=== PATIENT | female | born 1960 | race Caucasian/White ===

== ENCOUNTER → 2018-06-13 | Outpatient (CLI) | payer BC ==
--- NOTE | 2018-06-13 14:41 | PCVCIMAG ---
APPROVED REPORT Study performed: 06/13/2018 13:05:03 Exam: Stress Echocardiogram Indication: Dyspnea, FATIGUE,HTN,CHOL Patient Location: Echo lab Stress Nurse: Orquidea Mcelroy RN Room #: 2 Status: routine Ht: 5 ft 2 in HR: 69 bpm BP: 110/64 mmHg Rhythm: NSR Medical History Medical History: HTN, Hyperlipidemia Cardiac Risk Factors: FHX of CAD, HTN, Hyperlipidemia Pretest Chest Pain Characteristics: No chest pain Exercise History: Indeterminate Procedure The patient underwent an Exercise Stress Test using the Manjinder Protocol. Blood pressure, heart rate, and EKG were monitored. An Echocardiogram was performed by digital field service technician in four stages in quad fashion. At peak stress, four selected images were obtained and placed side by side with resting images for comparison. Stress Test Details Stress Test: Exercise stress testing was performed using a Manjinder protocol. HR Resting HR: 689 bpmMax Heart Rate (APMHR): 162 bpm Max HR Achieved: 173 bpmTarget HR (85% APMHR): 137 bpm % of APMHR: 106 Recovery HR: 99 bpm HR response to stress: Normal HR response to stress BP Resting BP: 110/64 mmHg Max BP: 150/70 mmHg Recovery BP: 114/64 mmHg ECG Resting ECG: Sinus Rhythm Stress ECG: Sinus Rhythm ST Change: Non-ischemic Arrhythmia: Rare PVC Recovery ECG: Sinus Rhythm Recovery ST Change: Non-ischemic Recovery Arrhythmia: None Clinical Reason for Termination: Maximal effort Stress Symptoms: none Exercise duration: 9 min 23 sec Highest Stage Achieved: Stage 4: 4.2 mph at 16% grade. Exercise capacity: 11.3 METs Overall Exercise Capacity for Age: Good Scale: Active Angina Score: None No complications. Stress ECG Conclusion The patient exercised according to the MANJINDER protocol for 9:23 mins; achieving a work level of 11.3 METS. The resting heart rate of 69 bpm emili to a maximum heart rate of 173 bpm. This value represent 106% of the maximal, age-predicted heart rate. The resting blood pressure of 110/64 mmHg, emili to a maximum blood pressure of 150/70 mmHg. The exercise test was stopped due to fatigue . Pre-Stress Echo The resting Echocardiogram showed normal left ventricular contractility with an estimated Ejection Fraction of about 55-60%. Normal wall motion in all segments on baseline images. Post-Stress Echo The stress Echocardiogram showed normal left ventricular contractility with an estimated Ejection Fraction of about 65-70%. Normal augmentation of wall motion in all segments on post stress images. Clinical No clinical or ECG evidence for ischemia. Conclusion Clinical Response: Non-ischemic Exercise Capacity: Superior Stress ECG Response: Non-ischemic Stress Echo Images: Non-ischemic No clinical, EKG or echocardiographic evidence for ischemia. No echocardiographic evidence for exercise induced ischemia. Normal stress echocardiogram with maximal exercise stress. No prior study available for comparison. <Conclusion> No clinical, EKG or echocardiographic evidence for ischemia. No echocardiographic evidence for exercise induced ischemia. Normal stress echocardiogram with maximal exercise stress.
== END | disposition home or self-care (01) ==
LOC: PCVCIMAG 16:41
PROVIDERS: ATTEND Internal Medicine Cardiovascular Disease
DX: I10 Essential (primary) hypertension (principal); R53.83 Other fatigue; R06.02 Shortness of breath; E78.5 Hyperlipidemia, unspecified
CPT/HCPCS: 93325; 93351